=== PATIENT | male | born 1995 | race African-American/Black ===

== ENCOUNTER 2020-10-05 15:38 | Emergency (ER) | payer OTHER ==
[~2020-10-05] VITALS: Ht 188 cm; Wt 68.0 kg
[2020-10-05 15:45] VITALS: BP 136/80
== END 2020-10-05 20:35 | disposition left against medical advice (07) ==
LOC: EDBD 15:38 → ER 15:43 → EDSEX 15:43 → ER 20:35
DX: Z04.3 Encounter for examination and observation following other accident (principal); Z53.21 Procedure and treatment not carried out due to patient leaving prior to being seen by health care provider